=== PATIENT | male | born 1960 | race Caucasian/White ===

== ENCOUNTER 2024-06-09 20:49 | Outpatient (OUT) | payer OTHER, SELFPAY | END 2024-06-09 20:50 | disposition home or self-care (01) | LOC: SLEEP 20:49 | PROVIDERS: PCP Family Medicine; Visit Provider Family Medicine | DX: G47.33 Obstructive sleep apnea (adult) (pediatric) (principal) | CPT/HCPCS: 95810 ==

== ENCOUNTER 2024-12-25 12:54 | Outpatient (RCR) | payer OTHER, SELFPAY | END 2025-01-09 13:45 | disposition home or self-care (01) | LOC: PT 12:54 | PROVIDERS: PCP Family Medicine; Visit Provider Family Medicine | DX: R20.0 Anesthesia of skin (principal); Z87.891 Personal history of nicotine dependence; M54.9 Dorsalgia, unspecified; M79.671 Pain in right foot; M79.672 Pain in left foot | CPT/HCPCS: 97110; 97140; 97161 ==